=== PATIENT | male | born 1970 | race African-American/Black ===

== ENCOUNTER 2022-12-17 04:32 | Emergency (ER) | payer SELFPAY ==
[2022-12-17 04:38] VITALS: TEMP 98.3; BMI 26.4
[2022-12-17] MEDS ORDERED: ONDANSETRON 4 MG/2 ML VIAL IVPUSH ONE (04:42)
[2022-12-17] MEDS ORDERED: ACETAMINOPHEN 1000 MG/100 ML BAG IVPB ONE (04:42)
[2022-12-17] MEDS ORDERED: FAMOTIDINE 20 MG/50 ML IVPB 20 MG/50 ML MG IVPB ONE (04:42)
[2022-12-17] MEDS ORDERED: ASPIRIN 325 MG ENTERIC COATED TABLET (FP) PO ONE (05:11)
[2022-12-17] MEDS ORDERED: ASPIRIN 325 MG TABLET PO ONE (05:13)
[2022-12-17] MEDS ORDERED: NITROGLYCERIN SUBLINGUAL 1/150 0.4 MG TAB SL ONE (05:36)
[2022-12-17 06:02] LABS: BASO % 0.4 % (0-2.0); EOS % 0.1 % (0-4.5); HEMOGLOBIN 12.9 GM/dL (11.7-16.9); LYMPH % 11.1 % (8-40); MCH 28.2 pg (25.7-33.7); MCHC 32.3 g/dl (32.0-35.9); MEAN CELL VOLUME 87.2 fl (80-96); MEAN PLT VOLUME 9.4 fl (7.5-11.1); MONO % 6.5 % (3.8-10.2); NEUT % 81.9 % (42.8-82.8); PLATELET COUNT 211 10^3/uL (134-434); RBC 4.59 M/mm3 (4.00-5.60); RDW 13.1 % (11.9-15.9); WHITE BLOOD COUNT 7.6 K/mm3 (4.0-10.0)
[2022-12-17] MEDS ORDERED: morphine CARPU-JECT 4 MG/1 ML DISP.SYRIN IVPUSH ONE (06:18)
[2022-12-17] MEDS ORDERED: morphine SULFATE 4 MG/ML VIAL ONE (06:22)
[2022-12-17 06:27] LABS: POTASSIUM 3.9 mmol/L (3.5-5.1)
[2022-12-17 06:29] LABS: BLOOD UREA NITROGEN 16.8 mg/dL (7-18); CALCIUM 9.4 mg/dL (8.5-10.1)
[2022-12-17 06:34] LABS: BILIRUBIN,TOTAL 0.7 mg/dL (0.2-1)
[2022-12-17] MEDS ORDERED: HEPARIN NA (PORCINE) 5,000 UNITS/ML 1ML VIAL IVPUSH ONE (07:01)
[2022-12-17] MEDS ORDERED: TICAGRELOR 90 MG TABLET PO ONE ×2 (07:08→07:11)
[2022-12-17] MEDS ORDERED: HEPARIN NA (PORCINE) 5,000 UNITS/ML 1ML VIAL ONE (07:11)
[2022-12-17] MEDS ORDERED: HEPARIN INFUSION - 25,000 UNITS/500 ML INFUS.BAG IVPB ONE (07:11)
[2022-12-17] MEDS ORDERED: HEPARIN INFUSION - 25,000 UNITS/500 ML INFUS.BAG IVPB SCH (07:15)
[2022-12-17 07:46] VITALS: BP 145/89; PULSE 62; RESP 19
[2022-12-17] MEDS ORDERED: TICAGRELOR 90 MG TABLET PO SCH (10:00)
== END 2022-12-17 07:55 | disposition short-term general hospital (02) ==
LOC: JER 04:32
PROC: 3E033GC Introduction of Other Therapeutic Substance into Peripheral Vein, Percutaneous Approach (ICD-10-PCS; principal; 2022-12-17)
PROC: 3E033NZ Introduction of Analgesics, Hypnotics, Sedatives into Peripheral Vein, Percutaneous Approach (ICD-10-PCS; 2022-12-17)
PROC: 3E033GC Introduction of Other Therapeutic Substance into Peripheral Vein, Percutaneous Approach (ICD-10-PCS; 2022-12-17)
PROC: 3E033GC Introduction of Other Therapeutic Substance into Peripheral Vein, Percutaneous Approach (ICD-10-PCS; 2022-12-17)
PROC: 3E033GC Introduction of Other Therapeutic Substance into Peripheral Vein, Percutaneous Approach (ICD-10-PCS; 2022-12-17)
DX: R11.2 Nausea with vomiting, unspecified (principal); R07.2 Precordial pain; R10.9 Unspecified abdominal pain; I21.3 ST elevation (STEMI) myocardial infarction of unspecified site; R42 Dizziness and giddiness; R61 Generalized hyperhidrosis; Z20.822 Contact with and (suspected) exposure to COVID-19
CPT/HCPCS: 0241U-QW; 36415; 71045-TC-FY; 80053; 83690; 83735; 84484; 85025; 93005; 93010; 99285-25; J1644